=== PATIENT | female | born 1985 | race Caucasian/White ===

== ENCOUNTER → 2023-11-07 08:11 | Outpatient (CLI) | payer BC, SELFPAY ==
--- NOTE | ~2023-11-07 | MM_ITS ---
EXAMINATION: MM diagnostic aleja BI w [facility]ador HISTORY: Lower inner quadrant left breast pain TECHNIQUE: ML, MLO and CC 3-D tomosynthesis images of both breasts were performed and synthetic 2-D i mages were generated. CAD analysis was submitted and interpreted. COMPARISON: None BREAST PARENCHYMAL COMPOSITION: There are scattered areas of fibroglandular density. FINDINGS: No suspicious mass or architectural distortion, malignant calcification, skin thickening or retraction is detected. IMPRESSION: 1. No mammographic evidence of malignancy 2. Routine annual mammographic screening beginning at age 40 is recommended BI-RADS Category 1: Negative Reviewed, dictated and finalized at location A. ESTATE UNDERWRITER
== END ==
PROVIDERS: PCP Nurse Practitioner Adult Health; Visit Provider Nurse Practitioner Adult Health
DX: N64.4 Mastodynia (principal)
CPT/HCPCS: 77062; 77066; G0279